=== PATIENT | male | born 1975 | race Caucasian/White ===

== ENCOUNTER 2019-08-24 16:54 | Emergency (ER) | payer MEDICAID ==
[~2019-08-24] VITALS: Ht 167.6 cm; Wt 104.3 kg
[2019-08-24 17:35] VITALS: BP 145/101
--- NOTE | 2019-08-24 17:56 | NUR ---
Pt taken to bed 11, ambulatory.
--- NOTE | 2019-08-24 18:15 | NUR ---
PT BROUGHT BACK FROM RAD
--- NOTE | 2019-08-24 18:15 | NUR ---
Pt returned from x-ray via w/c and placed in bed 11.
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
[2019-08-24] MEDS ORDERED: CYCLOBENZAPRINE 10 MG TAB PO ONE (18:25)
[2019-08-24] MEDS ORDERED: KETOROLAC 30 MG/ML VIAL IM ONE (18:25)
--- NOTE | 2019-08-24 18:35 | NUR ---
RAD AT BEDSIDE
[2019-08-24 19:08] VITALS: BP 145/97
--- NOTE | 2019-08-24 19:08 | NUR ---
Patient discharged with v/s stable. Written and verbal after care instructions given and explained. Patient alert, oriented and verbalized understanding of instructions. Ambulatory with steady gait. All questions addressed prior to discharge. ID band removed. Patient advised to follow up with PMD. Rx of FLEXERIL,IBUPROFEN given. Patient educated on indication of medication including possible reaction and side effects. Opportunity to ask questions provided and answered.
== END 2019-08-24 19:09 | disposition home or self-care (01) ==
LOC: MED 16:54
DX: S16.1XXA Strain of muscle, fascia and tendon at neck level, initial encounter (principal); S39.012A Strain of muscle, fascia and tendon of lower back, initial encounter; I10 Essential (primary) hypertension; K21.9 Gastro-esophageal reflux disease without esophagitis; Z98.890 Other specified postprocedural states; V89.2XXA Person injured in unspecified motor-vehicle accident, traffic, initial encounter; Y93.89 Activity, other specified; Y92.89 Other specified places as the place of occurrence of the external cause; Y99.8 Other external cause status
CPT/HCPCS: 72050; 72110; 96372; 99284; J1885; 99283